=== PATIENT | male | born 1965 | race Caucasian/White ===

== ENCOUNTER 2024-05-23 21:43 | Emergency (ER) | payer MEDICAID, OTHER ==
[~2024-05-23] VITALS: Ht 172.7 cm; Wt 105.0 kg
[2024-05-23] MEDS ORDERED: EPINEPHrine HCL 1 MG/10 ML SYRG IV ONE (21:44)
[2024-05-23 21:45] VITALS: BP 0/0; PULSE 0; RESP 0; O2SAT 0
[2024-05-23] MEDS: EPINEPHrine HCL 1 MG/10 ML SYRG ONE (22:07)
== END 2024-05-23 22:07 ==
LOC: ER 21:43 → EDBD 21:43 → ER 22:07
DX: S21.119A Laceration without foreign body of unspecified front wall of thorax without penetration into thoracic cavity, initial encounter (principal); I46.9 Cardiac arrest, cause unspecified; W26.9XXA Contact with unspecified sharp object(s), initial encounter; Y93.89 Activity, other specified; Y92.89 Other specified places as the place of occurrence of the external cause; Y99.8 Other external cause status
CPT/HCPCS: 31500; 36430; 86920; 99285; J0171; P9016